=== PATIENT | female | born 1995 | race Caucasian/White ===

== ENCOUNTER 2017-02-25 02:29 | Inpatient (IN) | payer OTHER ==
[~2017-02-25] VITALS: Ht 165.1 cm; Wt 52.3 kg
[2017-02-25 03:11] LABS: BASOPHIL % 0.1 % (0-2)
[2017-02-25 03:21] LABS: ALBUMIN 3.9 g/dL (3.4-5.0); ALKALINE PHOSPHATASE 77 U/L (46-116); ALT/SGPT 47 U/L (14-59); AST/SGOT 68 U/L (15-37); BILIRUBIN TOTAL 0.17 mg/dL (0.20-1.00); CALCIUM 8.3 mg/dL (8.5-10.1); CARBON DIOXIDE 20.4 mmol/L (21-32); CHLORIDE SERUM 108 mmol/L (98-107); CREATININE SERUM 0.8 mg/dL (0.6-1.0); GFR1 > 60 mL/min; POTASSIUM SERUM 3.5 mmol/L (3.5-5.1); SODIUM SERUM 145 mmol/L (136-145)
[2017-02-25 03:22] LABS: TOTAL PROTEIN, SERUM 8.3 g/dL (6.4-8.2)
[2017-02-25 03:23] LABS: GLUCOSE SERUM 54 mg/dL (74-106); PLATELET COUNT 429 x10^3mcL (130-400)
[2017-02-25 06:33] LABS: T3 TOTAL 1.09 ng/mL
[2017-02-25 06:43] LABS: CHOLESTEROL/HDL RATIO 2.9; PHOSPHOROUS 4.9 mg/dL (2.5-4.9)
[2017-02-25 06:51] LABS: FREE THYROXINE INDEX 2.6 ug/dL (1.4-4.5)
[2017-02-25 07:05] VITALS: BP 112/71
[2017-02-25 07:23] VITALS: BP 112/71
[2017-02-25 12:46] LABS: microscopic required? YES; urine erythrocyte TRACE (NEGATIVE)
[2017-02-25 13:04] LABS: AMPHETAMINE QUAL UR NONE DETECTED (NEG <=1000)
[2017-02-25 13:27] VITALS: BP 112/64
== END 2017-02-25 16:37 | disposition left against medical advice (07) | DRG 917 ==
LOC: ED 02:29 → DU 05:38
PROVIDERS: Specialist; ADMIT Family Medicine
DX: T50.991A Poisoning by other drugs, medicaments and biological substances, accidental (unintentional), initial encounter (principal); G92 Toxic encephalopathy; E87.2 Acidosis; F15.10 Other stimulant abuse, uncomplicated; F10.129 Alcohol abuse with intoxication, unspecified; E16.2 Hypoglycemia, unspecified; F17.210 Nicotine dependence, cigarettes, uncomplicated; I12.9 Hypertensive chronic kidney disease with stage 1 through stage 4 chronic kidney disease, or unspecified chronic kidney disease; N18.2 Chronic kidney disease, stage 2 (mild); F31.9 Bipolar disorder, unspecified; R00.0 Tachycardia, unspecified
CPT/HCPCS: 36600; 83880; 84439; G0480; J0696; J3490; J7030; J7042